=== PATIENT | male | born 1990 | race African-American/Black ===

== ENCOUNTER 2020-07-30 12:09 | Emergency (ER) | payer OTHER ==
[~2020-07-30] VITALS: Ht 172.7 cm; Wt 75.0 kg
[2020-07-30 13:24] LABS: BASOPHILS % (AUTO) 0.6 % (0.0-2.0); EOSINOPHILS % (AUTO) 0.9 % (1.0-6.0); HEMATOCRIT 44.4 % (41-53); LYMPHOCYTES # (AUTO) 1.2 K/uL (1.0-4.8); LYMPHOCYTES % (AUTO) 17.2 % (22.0-44.0); MEAN CORPUSCULAR HEMOGLOBIN 32.1 pg (26.0-34.0); MEAN CORPUSCULAR HGB CONC 33.9 G/dL (31.0-37.0); MEAN CORPUSCULAR VOLUME 95 fL (80-100); MONOCYTES # (AUTO) 0.8 K/uL (0.1-1.0); MONOCYTES % (AUTO) 11.2 % (2.0-9.0); NEUTROPHILS # (AUTO) 4.8 K/uL (1.8-7.7); NEUTROPHILS % (AUTO) 70.1 % (40.0-70.0); PLATELET COUNT (AUTO) 225 K/uL (150-450); RED BLOOD CELL COUNT(AUTO) 4.69 MIL/uL (4.50-5.90); RED CELL DISTRIBUTION WIDTH 13.4 % (11.5-14.5)
[2020-07-30 13:39] VITALS: BP 117/75
== END 2020-07-30 14:39 | disposition home or self-care (01) ==
LOC: EMS 12:09
DX: R07.89 Other chest pain (principal); F32.9 Major depressive disorder, single episode, unspecified; F17.210 Nicotine dependence, cigarettes, uncomplicated
CPT/HCPCS: 93005; 99285; 36415-L1; 36415-TC; 71046; 71046-TC

== ENCOUNTER 2025-03-29 00:06 | Emergency (ER) | payer MEDICAID, OTHER ==
[~2025-03-29] VITALS: Ht 172.7 cm; Wt 84.1 kg
[2025-03-29] MEDS: SODIUM CHLORIDE 0.9% 1,000 ML IV ONE ×2 (02:05→02:45)
[2025-03-29 02:06] LABS: PLATELET COUNT (AUTO) 233 K/uL (150-450); RED BLOOD CELL COUNT(AUTO) 5.21 MIL/uL (4.50-5.90); RED CELL DISTRIBUTION WIDTH 13.4 % (11.5-14.5); WHITE BLOOD COUNT (AUTO) 7.3 K/uL (4.5-11.0)
[2025-03-29 02:14] LABS: APPEARANCE,URINE CLEAR (CLEAR); GLUCOSE, URINE (UA) NEGATIVE (NEGATIVE); LEUKOCYTE ESTERASE ,URINE NEGATIVE (NEGATIVE); NITRATE,URINE NEGATIVE (NEGATIVE); OCCULT BLOOD,URINE NEGATIVE (NEGATIVE); SPECIFIC GRAVITIY, URINE 1.040 (1.003-1.030)
[2025-03-29 02:30] LABS: CALCIUM, TOTAL 9.1 mg/dL (8.8-10.5); CREATININE 0.83 mg/dL (0.60-1.30); GLOMERULAR FILTR. RATE CALC > 60 mL/min (>60); GLUCOSE,RANDOM 110 mg/dL (70-110); SODIUM SERUM 134 mmol/L (136-145); UREA NITROGEN, BLOOD 17 mg/dL (7-18)
[2025-03-29 02:34] LABS: ASPARTATE AMINOTRANSFERASE 25 U/L (15-37); TOTAL PROTEIN, SERUM 7.8 g/dL (6.4-8.2)
[2025-03-29] MEDS ORDERED: DIPH-1130 PO (02:40)
[2025-03-29] MEDS: DIPHENOXYLATE/ATROP 2.5-0.025 MG TABLET PO ONE (02:45)
[2025-03-29 05:00] VITALS: BP 119/67; PULSE 78; RESP 16; TEMP 98.3; O2SAT 98
== END 2025-03-29 05:00 | disposition home or self-care (01) ==
LOC: EMS 00:09
DX: A08.4 Viral intestinal infection, unspecified (principal); F32.A Depression, unspecified; F17.210 Nicotine dependence, cigarettes, uncomplicated; F10.90 Alcohol use, unspecified, uncomplicated; Y90.9 Presence of alcohol in blood, level not specified
CPT/HCPCS: 99283; 96360; 96361; 80053; 81003; 83690; 85025; 36415; J7030